=== PATIENT | male | born 1945 | race Caucasian/White ===

== ENCOUNTER 2021-06-04 06:24 | Observation (INO) | payer MEDICARE ==
[~2021-06-04] VITALS: Ht 170.2 cm; Wt 109.2 kg
[2021-06-04] MEDS ORDERED: SODIUM CHLORIDE 0.9% 1,000 ML IV SCH (07:00)
[2021-06-04] MEDS ORDERED: FINA5TAB PO (07:14)
[2021-06-04] MEDS ORDERED: AMLO5TAB4 PO (07:15)
[2021-06-04] MEDS ORDERED: ALLO300T PO (07:15)
[2021-06-04] MEDS ORDERED: POTA473S4 PO (07:17)
[2021-06-04] MEDS ORDERED: LIDOCAINE 1%, 20ML ONE ×2 (07:33→08:48)
[2021-06-04 07:39] LABS: BASOPHILS % (AUTO) 1 % (0-1); EOSINOPHILS % (AUTO) 2 % (1-7); LYMPHOCYTES % (AUTO) 22 % (22-44); MEAN CORPUSCULAR HEMOGLOBIN 32.8 pg (27.5-34.5); MEAN CORPUSCULAR HGB CONC 34.6 g/dL (33.2-36.2); MEAN PLATELET VOLUME 7.7 fL (7.4-10.4); MONOCYTES % (AUTO) 12 % (2-9); NEUTROPHILS % (AUTO) 64 % (42-75); PLATELET COUNT 216 x10^3/uL (130-400); RED BLOOD COUNT 4.73 x10^6/uL (4.38-5.82); RED CELL DISTRIBUTION WIDTH 15.1 % (9.4-14.8)
[2021-06-04 07:41] VITALS: BP 142/67
[2021-06-04] MEDS ORDERED: MIDAZOLAM 1 MG/ML, 2ML ONE ×2 (07:43→09:35)
[2021-06-04] MEDS ORDERED: FENTANYL PF 100 MCG/2ML ONE ×2 (07:43→11:19)
[2021-06-04 07:47] LABS: ANION GAP 4 mmol/L (5-15); CALCIUM 8.9 mg/dL (8.5-10.1); CHLORIDE 111 mmol/L (98-107); CREATININE 1.05 mg/dL (0.7-1.3)
[2021-06-04 08:13] LABS: INTERNATIONAL NORMALIZED RATIO 0.97 (0.93-1.1); PROTHROMBIN TIME 10.4 Seconds (9.6-11.5)
[2021-06-04] MEDS ORDERED: HEPARIN 1,000 UNITS/ML, 10ML ONE (09:07)
[2021-06-04] MEDS ORDERED: CLOPIDOGREL 75 MG TABLET ONE (10:44)
[2021-06-04] MEDS ORDERED: ASPIRIN 81 MG TABLET CHEW ONE (10:44)
[2021-06-04] MEDS ORDERED: ACETAMINOPHEN 325 MG TABLET PO PRN (11:00)
[2021-06-04] MEDS ORDERED: ONDANSETRON 2MG/ML, 2ML IVPush PRN (11:00)
[2021-06-04] MEDS ORDERED: FENTANYL PF 100 MCG/2ML IVPush ONE (11:30)
[2021-06-04] MEDS ORDERED: HYDROcodone/APAP 5/325 TABLET ONE (13:23)
[2021-06-04] MEDS: OXYcodone/APAP 5/325MG TABLET PO PRN ×2 (13:27→20:41)
[2021-06-04 14:19] VITALS: BP 122/84
[2021-06-04] MEDS: CLOPIDOGREL 75 MG TABLET PO SCH (14:44)
[2021-06-04] MEDS: ASPIRIN 81 MG TABLET CHEW PO SCH (14:44)
[2021-06-04] MEDS: TIZANIDINE 4MG TABLET PO SCH ×2 (14:44→21:59)
[2021-06-04 18:44] VITALS: BP 113/74
[2021-06-05 00:45] VITALS: BP 100/66
[2021-06-05] MEDS: TIZANIDINE 4MG TABLET PO SCH ×2 (06:01→14:04)
[2021-06-05 06:21] VITALS: BP 118/74
[2021-06-05] MEDS ORDERED: ALLOPURINOL 300 MG TABLET PO SCH (09:00)
[2021-06-05] MEDS ORDERED: FINASTERIDE 5 MG TABLET PO SCH (09:00)
[2021-06-05] MEDS ORDERED: AMLODIPINE 5 MG TABLET PO SCH (09:00)
[2021-06-05] MEDS: CLOPIDOGREL 75 MG TABLET PO SCH (09:27)
[2021-06-05] MEDS: ASPIRIN 81 MG TABLET CHEW PO SCH (09:27)
[2021-06-05] MEDS ORDERED: CLOP75TA PO (10:54)
== END 2021-06-05 14:57 | disposition home or self-care (01) ==
LOC: CACL 06:24 → ORIP 10:42 → 5SO 13:57
PROVIDERS: ADMIT Internal Medicine Cardiovascular Disease; ATTEND Internal Medicine Cardiovascular Disease
DX: I49.3 Ventricular premature depolarization (principal); I49.9 Cardiac arrhythmia, unspecified; I10 Essential (primary) hypertension; Z79.01 Long term (current) use of anticoagulants; Z79.899 Other long term (current) drug therapy
CPT/HCPCS: 36415; 71046; 80048; 85025; 85347; 85610; 93005; 93306; 93454; 93654; 93662; 96374; 99156; 99157; C1732; C1759; C1766; C1769; C1894; G0378; J1644; J2250; J3010; J3490